=== PATIENT | male | born 1990 | race Two or more races ===

== ENCOUNTER 2022-07-04 13:23 | Emergency (ER) | payer BC, OTHER ==
[~2022-07-04] VITALS: Ht 177.8 cm; Wt 117.0 kg
[2022-07-04 13:37] VITALS: BP 132/73
[2022-07-04] MEDS ORDERED: SUMAtriptan SUCCINATE 6 MG/0.5 ML VL SC ONE (15:30)
[2022-07-04] MEDS ORDERED: ONDANSETRON ODT 4 MG TAB PO ONE (16:45)
[2022-07-04] MEDS ORDERED: SUMA100T2 PO (16:48)
[2022-07-04] MEDS ORDERED: ONDA-144 PO (16:48)
== END 2022-07-04 16:59 | disposition home or self-care (01) ==
LOC: ER 13:23
DX: G43.909 Migraine, unspecified, not intractable, without status migrainosus (principal)
CPT/HCPCS: 70200; 70450; 96372; 99285; J3030; Q0162